=== PATIENT | male | born 1975 | race Caucasian/White ===

== ENCOUNTER 2020-07-21 20:16 | Emergency (ER) | payer OTHER ==
[~2020-07-21] VITALS: Ht 172.7 cm; Wt 91.8 kg
[2020-07-21] MEDS ORDERED: VALT1TAB PO (20:26)
[2020-07-21] MEDS ORDERED: diazePAM 10MG/2ML SYRINGE (J3360 PER 5MG) IV ONE (21:30)
[2020-07-21] MEDS ORDERED: KETOROLAC 30 MG/ML 1ML VIAL IV ONE (21:30)
[2020-07-21] MEDS ORDERED: ISOVUE-370 76% 100ML VIAL As Ordered ONE (22:03)
--- NOTE | 2020-07-21 23:13 | REPVR ---
PROCEDURE INFORMATION: Exam: CT Abdomen And Pelvis With Contrast Exam date and time: 07/21/2020 10:42 PM Age: 44 years old Clinical indication: Injury or trauma; Fall; Blunt; Luq; Additional info: Pain posterior left upper quadrant spleen vs ribs 04-20 TECHNIQUE: Imaging protocol: Computed tomography of the abdomen and pelvis with intravenous contrast. Radiation optimization: All CT scans at this facility use at least one of these dose optimization techniques: automated exposure control; mA and/or kV adjustment per patient size (includes targeted exams where dose is matched to clinical indication); or iterative reconstruction. Contrast material: ISOVUE 370; Contrast volume: 100 ml; Contrast route: INTRAVENOUS (IV); COMPARISON: No relevant prior studies available. FINDINGS: Liver: Normal. No mass. Gallbladder and bile ducts: Normal. No calcified stones. No ductal dilation. Pancreas: Normal. No ductal dilation. Spleen: Normal. No splenomegaly. Adrenal glands: Normal. No mass. Kidneys and ureters: Normal. No hydronephrosis. Stomach and bowel: Severe stool in the colon. No abnormal bowel dilatation. No abnormal bowel wall thickening. Negative for colonic diverticulitis. Appendix: Appendix is normal. Intraperitoneal space: Unremarkable. No free air. No significant fluid collection. Vasculature: Unremarkable. No abdominal aortic aneurysm. Lymph nodes: Unremarkable. No enlarged lymph nodes. Urinary bladder: Diffuse thickening of the bladder. Bladder is partially contracted. Reproductive: Hypodense lesion centrally in the prostate measuring 1.7 x 0.9 x 1.5 cm. Bones/joints: Acute mildly displaced fractures of the left 8th and 9th ribs posterolaterally. No acute spinal fracture. Soft tissues: Unremarkable. IMPRESSION: 1. No evidence of acute intra-abdominal injury. 2. Acute mildly displaced fractures of the left 8th and 9th ribs posterolaterally. 3. Diffuse thickening of the bladder. Decompressed bladder versus cystitis versus hypertrophic changes. 4. Hypodense lesion centrally in the prostate. Utricular cyst versus prostatic abscess. Correlate clinically. Electronically signed by: Lata Cool On 07/21/2020 23:14:01 PM
[2020-07-21] MEDS ORDERED: HYDR-3713 PO (23:38)
[2020-07-21] MEDS ORDERED: NAPR-837 PO (23:38)
[2020-07-21] MEDS ORDERED: NORCO 5/325MG TABLET (BULK FOR ED) PO ONE (23:45)
[2020-07-22 00:03] VITALS: BP 130/79
[2020-07-22] MEDS ORDERED: HYDR-3713 PO (13:01)
== END 2020-07-22 00:06 | disposition home or self-care (01) ==
LOC: M ED 20:16
DX: S22.42XA Multiple fractures of ribs, left side, initial encounter for closed fracture (principal); W01.0XXA Fall on same level from slipping, tripping and stumbling without subsequent striking against object, initial encounter; Y92.9 Unspecified place or not applicable; Y93.9 Activity, unspecified; Y99.1 Military activity; N42.9 Disorder of prostate, unspecified
CPT/HCPCS: 74160; 96374; 96375; 99284; J1885; J3360; Q9967

== ENCOUNTER → 2023-03-08 | Outpatient (REF) | payer OTHER ==
[~2023-03-08] MED LIST: ALLO100T PO; HYDR-3713 PO; NAPR-837 PO; PANT40TA29 PO; VALT1TAB PO
== END ==
LOC: M SMT 17:40 → M LAB REF 17:40
PROVIDERS: ATTEND Urology
DX: Z30.2 Encounter for sterilization (principal)
CPT/HCPCS: 55250; 88302; J0665